=== PATIENT | male | born 1965 | race Caucasian/White ===

== ENCOUNTER 2017-07-19 20:05 | Observation (INO) | payer SELFPAY ==
[2017-07-19] MEDS ORDERED: NS 0.9% 1000 ML* 2,000 ML IV ONE (21:43)
[2017-07-19 22:11] LABS: Troponin I 0.01 ng/mL (<0.04)
[2017-07-19 22:12] LABS: ALT 42 U/L (7-52); AST 80 U/L (13-39); Albumin 2.6 g/dL (3.2-5.2); Alkaline Phosphatase 133 U/L (34-104); BUN/Creatinine Ratio 16.9 (8-20); Blood Urea Nitrogen 12 mg/dL (6-24); Chloride 105 mmol/L (101-111); EGFR African American 149.8 (>60); EGFR Non-African American 116.5 (>60); Globulin 2.4 g/dL (2-4); Glucose 66 mg/dL (70-100); Magnesium 1.6 mg/dL (1.9-2.7); Sodium 136 mmol/L (133-145)
[2017-07-19 22:13] LABS: Acetaminophen < 15 mcg/mL; Alcohol < 10 mg/dL (<10); Salicylate < 2.50 mg/dL (<30)
[2017-07-19 22:15] LABS: Anion Gap 18 mmol/L (2-11); CO2 Carbon Dioxide 13 mmol/L (22-32); Potassium 2.7 mmol/L (3.5-5.0)
[2017-07-19 22:44] LABS: Hematocrit 31 % (42-52); Hemoglobin 10.4 g/dl (14.0-18.0); Mean Corpuscular HGB Conc 33 g/dl (31-36); Mean Corpuscular Hemoglobin 36 pg (27-31); Mean Corpuscular Volume 107 fL (80-94); Mean Platelet Volume 9 um3 (7.4-10.4); Red Blood Count 2.91 10^6/ul (4.0-5.4); Red Cell Distribution Width 15 % (10.5-15); White Blood Count 5.5 10^3/ul (3.5-10.8)
[2017-07-19] MEDS ORDERED: Dextrose 50% Syringe 50 ML* 25 GM/50 ML SYRINGE IV PUSH ONE (22:46)
[2017-07-19] MEDS ORDERED: Magnesium Sulfate 1 GM IV* 1 GM/100 ML BAG IV ONE (22:47)
[2017-07-19 22:48] LABS: Comments Flag Yes
[2017-07-19 22:49] LABS: Add Diff/Slide Review? Slide Review Added
[2017-07-19] MEDS ORDERED: Potassium Chlor TAB* 20 MEQ TAB.ER PO ONE (22:52)
[2017-07-19] MEDS: KCL 10 MEQ/50 ML IVPREMIX* 10 MEQ/50 ML BAG IV SCH (23:04)
[2017-07-19] MEDS ORDERED: Calcium Gluconate INJ* 1 GM in NS 0.9% 50 ML* 50 ML IVPB ONE (23:12)
[2017-07-19] MEDS ORDERED: Heparin DRIP 25,000 UNITS(*) 25,000 UNITS/500 ML BAG IVPB SCH (23:15)
[2017-07-19] MEDS ORDERED: Aspirin TAB* 325 MG PO ONE (23:18)
[2017-07-19] MEDS ORDERED: Heparin VIAL(*) 5000 UNITS/ML VIAL (FIVE THOUSAND) IV SCH (23:45)
[2017-07-20] MEDS: KCL 10 MEQ/50 ML IVPREMIX* 10 MEQ/50 ML BAG IV SCH
[2017-07-20] MEDS ORDERED: Aspirin SUPP* 300 MG ONE (00:22)
[2017-07-20] MEDS ORDERED: Aspirin SUPP* 300 MG PR ONE (00:45)
--- NOTE | 2017-07-20 03:12 | ED ---
Priti Basilio Abhishek, scribed for Ariel Fernandez MD on 07/19/17 at 2151 . Altered Mental Status - HPI Summary HPI Summary: LEVEL 5 CAVEAT This patient is a 51 year old M BIBA from [facility] with a chief complaint of altered mental state. Pt was unresponsive (LOC) until 2125. Nurse reports chest pain and Pt transferred from [facility] for r/o NSTEMI. PMHx includes Sz. Medical records show unsteady gait, frequent falls, and symptoms of alcohol withdrawals. Chest X-ray and head X-ray perform at [facility] negative. Troponin mildly elevated. Pt denies any chest pain and SOB currently. - History Of Current Complaint Chief Complaint: EDChestPainROMI Stated Complaint: RULE OUT NSTEMI Hx Obtained From: Medical Records, Other: - Nurse Hx From Patient Unobtainable Due To: Altered Mental Status - LOC and unresponsive until 2125 Onset/Duration: Suddenly - 1630 Aggravating Factor(s): Nothing Alleviating Factor(s): Nothing Related History: Seizure - Allergies/Home Medications Allergies/Adverse Reactions: Allergies Allergy/AdvReac Type Severity Reaction Status Date / Time Penicillins [PCN] Allergy GI Upset Verified 09/04/13 13:07 PMH/Surg Hx/FS Hx/Imm Hx Cardiovascular History: Reports: Hx Hypertension Infectious Disease History: No Infectious Disease History: Denies: Traveled Outside the [place] in Last 30 Days - Family History Known Family History: Negative: Cardiac Disease - Social History Alcohol Use: unk Substance Use Type: Reports: Other Substance Use Comment - Amount & Last Used: unk Smoking Status (MU): Unknown if Ever Smoked Review of Systems - ROS Summary Review of Systems Summary: LEVEL 5 CAVEAT Pt was unresponsive until 2125 Constitutional: Negative Eyes: Negative ENT: Negative Negative: Chest Pain Negative: Shortness Of Breath Gastrointestinal: Negative Genitourinary: Negative Musculoskeletal: Negative Positive: Other Skin: Negative Neurological: Other - unsteady gait Positive: Syncope - LOC until 2125 All Other Systems Reviewed And Are Negative: Yes Physical Exam - Summary Physical Exam Summary: Appearance: Well-appearing, Well-nourished Skin: Warm Eyes: Normal ENT: Normal, Pupils 3 mm bilaterally reactive and equal Neck: Supple, nontender Respiratory: Clear to auscultation, normal lung sounds Cardiovascular: 2+ Brisk radial pulses 2+ Posterior tibial pulses bilaterally, Normal heart Abdomen: Soft, nontender Bowel: Present Musculoskeletal: Normal, Strength/ROM Intact Neurological: Slightly lethargic but unable follow commands alert only to self Psychiatric: Normal, History of possible substance use according to outside reports Triage Information Reviewed: Yes Vital Signs On Initial Exam: Initial Vitals BP 105/85 07/19/17 20:14 Vital Signs Reviewed: Yes - [place] Coma Scale Coma Scale Total: 11 Diagnostics - Vital Signs Vital Signs Temp Pulse Resp BP Pulse Ox 07/19/17 21:30 63 17 100/73 100 07/19/17 21:20 62 15 80/60 97 07/19/17 21:17 63 15 81/60 96 07/19/17 21:16 63 15 81/59 96 07/19/17 21:00 62 16 95/62 98 07/19/17 20:49 62 16 104/80 99 07/19/17 20:30 62 15 100/66 96 07/19/17 20:16 97.5 F 64 17 107/76 100 07/19/17 20:15 64 15 100 07/19/17 20:14 105/85 - Laboratory Lab Results: Lab Results 07/19/17 07/19/17 07/19/17 Range/Units 21:31 21:31 21:31 WBC 5.5 (3.5-10.8) 10^3/ul RBC 2.91 L (4.0-5.4) 10^6/ul Hgb 10.4 L (14.0-18.0) g/dl Hct 31 L (42-52) % MCV 107 H (80-94) fL MCH 36 H (27-31) pg MCHC 33 (31-36) g/dl RDW 15 (10.5-15) % Plt Count 83 L (150-450) 10^3/ul MPV 9 (7.4-10.4) um3 Neut % (Auto) 67.5 (38-83) % Lymph % (Auto) 19.1 L (25-47) % [place] % (Auto) 8.7 (1-9) % Eos % (Auto) 3.9 (0-6) % Baso % (Auto) 0.8 (0-2) % Absolute Neuts (auto) 3.7 (1.5-7.7) 10^3/ul Absolute Lymphs (auto) 1.0 (1.0-4.8) 10^3/ul Absolute Monos (auto) 0.5 (0-0.8) 10^3/ul Absolute Eos (auto) 0.2 (0-0.6) 10^3/ul Absolute Basos (auto) 0 (0-0.2) 10^3/ul Absolute Nucleated RBC 0 10^3/ul Nucleated RBC % 0 INR (Anticoag Therapy) 0.93 (0.89-1.11) APTT 28.8 (26.0-36.3) seconds Sodium 136 (133-145) mmol/L Potassium 2.7 L* (3.5-5.0) mmol/L Chloride 105 (101-111) mmol/L Carbon Dioxide 13 L* (22-32) mmol/L Anion Gap 18 H (2-11) mmol/L BUN 12 (6-24) mg/dL Creatinine 0.71 (0.67-1.17) mg/dL Est GFR ( Amer) 149.8 (>60) Est GFR (Non-Af Amer) 116.5 (>60) BUN/Creatinine Ratio 16.9 (8-20) Glucose 66 L (70-100) mg/dL POC Glucose (mg/dL) (70-100) mg/dL Lactic Acid (0.5-2.0) mmol/L Calcium 7.0 L (8.6-10.3) mg/dL Magnesium 1.6 L (1.9-2.7) mg/dL Total Bilirubin 0.90 (0.2-1.0) mg/dL AST 80 H (13-39) U/L ALT 42 (7-52) U/L Alkaline Phosphatase 133 H (34-104) U/L Troponin I 0.01 (<0.04) ng/mL Total Protein 5.0 L (6.4-8.9) g/dL Albumin 2.6 L (3.2-5.2) g/dL Globulin 2.4 (2-4) g/dL Albumin/Globulin Ratio 1.1 (1-3) Salicylates < 2.50 (<30) mg/dL Acetaminophen < 15 mcg/mL Serum Alcohol < 10 (<10) mg/dL 07/19/17 07/19/17 Range/Units 21:31 21:35 WBC (3.5-10.8) 10^3/ul RBC (4.0-5.4) 10^6/ul Hgb (14.0-18.0) g/dl Hct (42-52) % MCV (80-94) fL MCH (27-31) pg MCHC (31-36) g/dl RDW (10.5-15) % Plt Count (150-450) 10^3/ul MPV (7.4-10.4) um3 Neut % (Auto) (38-83) % Lymph % (Auto) (25-47) % [place] % (Auto) (1-9) % Eos % (Auto) (0-6) % Baso % (Auto) (0-2) % Absolute Neuts (auto) (1.5-7.7) 10^3/ul Absolute Lymphs (auto) (1.0-4.8) 10^3/ul Absolute Monos (auto) (0-0.8) 10^3/ul Absolute Eos (auto) (0-0.6) 10^3/ul Absolute Basos (auto) (0-0.2) 10^3/ul Absolute Nucleated RBC 10^3/ul Nucleated RBC % INR (Anticoag Therapy) (0.89-1.11) APTT (26.0-36.3) seconds Sodium (133-145) mmol/L Potassium (3.5-5.0) mmol/L Chloride (101-111) mmol/L Carbon Dioxide (22-32) mmol/L Anion Gap (2-11) mmol/L BUN (6-24) mg/dL Creatinine (0.67-1.17) mg/dL Est GFR ( Amer) (>60) Est GFR (Non-Af Amer) (>60) BUN/Creatinine Ratio (8-20) Glucose (70-100) mg/dL POC Glucose (mg/dL) 83 (70-100) mg/dL Lactic Acid 0.5 (0.5-2.0) mmol/L Calcium (8.6-10.3) mg/dL Magnesium (1.9-2.7) mg/dL Total Bilirubin (0.2-1.0) mg/dL AST (13-39) U/L ALT (7-52) U/L Alkaline Phosphatase (34-104) U/L Troponin I (<0.04) ng/mL Total Protein (6.4-8.9) g/dL Albumin (3.2-5.2) g/dL Globulin (2-4) g/dL Albumin/Globulin Ratio (1-3) Salicylates (<30) mg/dL Acetaminophen mcg/mL Serum Alcohol (<10) mg/dL Result Diagrams: 07/19/17 21:31 07/19/17 21:31 Lab Statement: Any lab studies that have been ordered have been reviewed, and results considered in the medical decision making process. - Radiology Chest X-ray Radiology Interpretation Completed By: Radiologist - CXR reveals No evidence for acute intrathoracic disease. ED physician has reviewed this radiology report and agrees. - CT Brain CT CT Interpretation Completed By: Radiologist - Brain CT reveals PATCHY LUCENCY IN THE WHITE MATTER JUST LATERAL TO THE CAUDATE HEAD SUGGESTING A LACUNAR INFARCTION OF INDETERMINATE AGE. MRI IMAGING MAY HELP IN FURTHER EVALUATING FOR ACUTE OR CHRONIC ISCHEMIC CHANGES. ED physician has reviewed this radiology report and agrees. Altered Mental Statu Course/Dx - Course Course Of Treatment: started on heparin for possible nstemi. troponin neg here on repeat, given rectal asa, improving mental status. Already had neg cxr and head ct. ekg shows new twi in lateral leads, admitted for further treatment and observation for etoh withdrawal. - Diagnoses Discharge Diagnoses: Alcohol withdrawal, EKG abnormalities Discharge - Discharge Plan Condition: Stable Disposition: ADMITTED TO [facility] The documentation as recorded by the Priti sotomayor Abhishek accurately reflects the service I personally performed and the decisions made by , Ariel Fernandez MD.
[2017-07-20] MEDS ORDERED: Ondansetron INJ* 2 MG/ML VIAL IV PRN (03:53)
[2017-07-20] MEDS ORDERED: Acetaminophen TAB* 325 MG PO PRN (03:53)
[2017-07-20] MEDS ORDERED: Thiamine IV* 100 MG/ML 2 ML VIAL IM ONE (04:28)
[2017-07-20] MEDS ORDERED: KCL 20 MEQ/100 ML IVPREMIX* 20 MEQ/100 ML BAG IV ONE (04:31)
--- NOTE | 2017-07-20 04:33 | HP ---
H&P (Free Text) History and Physical: PCP: unknown Date/Time: 07/20/2017 0345 CC: frequent falls HPI: Mr Simmons is a 51YO male HX alcoholism who drove himself to [place] ED where he complained of frequent falls and was noted to be easily confused with active hallucinations. From there his work up revealed multiple electrolyte abnormalities consistent with alcoholism in addition to a trivially elevated troponin of 0.023 associated with an ECG showing T-wave inversions V1-4 and T- wave flattening in V5-6 & I prompting a request to transfer to [facility] for cardiac rule-out. Per [place] documentation, he denied chest pain, SOB, & N/V and was in no apparent distress. Drug screen was negative, including alcohol. Prior to transport he received 50mg chlordiazepoxide PO, 2mg lorazepam IV, & 324mg aspirin. Repeat troponin at [facility] was 0.01 with an essentially unchanged ECG. Upon my evaluation, Mr Simmons remains quite sedated. He withdraws purposefully to noxious stimuli and briefly opens his eyes, but does not answer questions and drifts quickly back to sleep. This information was therefore obtained from ED staff and the available medical record. He was initially started on a heparin GTT, but I have discontinued this based on the available information and work up. PMedHx HTN alcoholism Medications Nursing to reconcile. Allergies Penicillins [PCN] Allergy (Verified 09/04/13 13:07) GI Upset PSurgHx unobtainable SocHx: unobtainable FamHx: unobtainable ROS: unobtainable vitals: Vital Signs Temp 36.3 C 07/20/17 01:34 Pulse 62 07/20/17 03:30 Resp 14 07/20/17 03:30 BP 86/63 07/20/17 03:30 Pulse Ox 100 07/20/17 03:30 Intake & Output 07/19/17 07/19/17 07/20/17 11:59 23:59 11:59 Intake Total 221 50 Balance 221 50 Weight 74.843 kg Intake: IV Fluids 2210 50 Constitutional: NAD, normally developed, well-nourished white male HEENM: atraumatic; sclera/conjunctiva: non-icteric/clear; hearing: unable to assess; oropharynx: clear, mucosa tacky, intact gag reflex Neck: soft tissue: non-tender; thyroid: normal Pulmonary: clear to auscultation bilaterally, good aeration, no accessory muscle use CV: RR/RR, normal S1S2, no carotid bruit, no jugular venous distention, 2+ B DP/ PT, no edema Abdominal: soft, non-distended, non-tender, no rebound/guarding/rigidity, normoactive bowel sounds, no hepatosplenomegaly or masses, no costovertebral angle tenderness Musculoskeletal: general: grossly intact; gait: currently unable to ambulate Integumental: normal appearance and texture of exposed skin Psychiatric orientation: somnolent, GCS 8 affect: somnolent mood: acquiescent eye contact: poor, nearly absent content: incomprehensible, minimal effort memory: unable to assess responses: minimal, withdraws purposefully to pain insight: poor Testing: Lab Results 07/19/17 07/19/17 07/19/17 Range/Units 21:31 21:31 21:31 WBC 5.5 (3.5-10.8) 10^3/ul RBC 2.91 L (4.0-5.4) 10^6/ul Hgb 10.4 L (14.0-18.0) g/dl Hct 31 L (42-52) % MCV 107 H (80-94) fL MCH 36 H (27-31) pg MCHC 33 (31-36) g/dl RDW 15 (10.5-15) % Plt Count 83 L (150-450) 10^3/ul MPV 9 (7.4-10.4) um3 Neut % (Auto) 67.5 (38-83) % Lymph % (Auto) 19.1 L (25-47) % [place] % (Auto) 8.7 (1-9) % Eos % (Auto) 3.9 (0-6) % Baso % (Auto) 0.8 (0-2) % Absolute Neuts (auto) 3.7 (1.5-7.7) 10^3/ul Absolute Lymphs (auto) 1.0 (1.0-4.8) 10^3/ul Absolute Monos (auto) 0.5 (0-0.8) 10^3/ul Absolute Eos (auto) 0.2 (0-0.6) 10^3/ul Absolute Basos (auto) 0 (0-0.2) 10^3/ul Absolute Nucleated RBC 0 10^3/ul Nucleated RBC % 0 INR (Anticoag Therapy) 0.93 (0.89-1.11) APTT 28.8 (26.0-36.3) seconds Sodium 136 (133-145) mmol/L Potassium 2.7 L* (3.5-5.0) mmol/L Chloride 105 (101-111) mmol/L Carbon Dioxide 13 L* (22-32) mmol/L Anion Gap 18 H (2-11) mmol/L BUN 12 (6-24) mg/dL Creatinine 0.71 (0.67-1.17) mg/dL Est GFR ( Amer) 149.8 (>60) Est GFR (Non-Af Amer) 116.5 (>60) BUN/Creatinine Ratio 16.9 (8-20) Glucose 66 L (70-100) mg/dL POC Glucose (mg/dL) (70-100) mg/dL Lactic Acid (0.5-2.0) mmol/L Calcium 7.0 L (8.6-10.3) mg/dL Magnesium 1.6 L (1.9-2.7) mg/dL Total Bilirubin 0.90 (0.2-1.0) mg/dL AST 80 H (13-39) U/L ALT 42 (7-52) U/L Alkaline Phosphatase 133 H (34-104) U/L Troponin I 0.01 (<0.04) ng/mL Total Protein 5.0 L (6.4-8.9) g/dL Albumin 2.6 L (3.2-5.2) g/dL Globulin 2.4 (2-4) g/dL Albumin/Globulin Ratio 1.1 (1-3) Salicylates < 2.50 (<30) mg/dL Acetaminophen < 15 mcg/mL Serum Alcohol < 10 (<10) mg/dL 07/19/17 07/19/17 07/20/17 Range/Units 21:31 21:35 03:32 WBC (3.5-10.8) 10^3/ul RBC (4.0-5.4) 10^6/ul Hgb (14.0-18.0) g/dl Hct (42-52) % MCV (80-94) fL MCH (27-31) pg MCHC (31-36) g/dl RDW (10.5-15) % Plt Count (150-450) 10^3/ul MPV (7.4-10.4) um3 Neut % (Auto) (38-83) % Lymph % (Auto) (25-47) % [place] % (Auto) (1-9) % Eos % (Auto) (0-6) % Baso % (Auto) (0-2) % Absolute Neuts (auto) (1.5-7.7) 10^3/ul Absolute Lymphs (auto) (1.0-4.8) 10^3/ul Absolute Monos (auto) (0-0.8) 10^3/ul Absolute Eos (auto) (0-0.6) 10^3/ul Absolute Basos (auto) (0-0.2) 10^3/ul Absolute Nucleated RBC 10^3/ul Nucleated RBC % INR (Anticoag Therapy) (0.89-1.11) APTT (26.0-36.3) seconds Sodium (133-145) mmol/L Potassium (3.5-5.0) mmol/L Chloride (101-111) mmol/L Carbon Dioxide (22-32) mmol/L Anion Gap (2-11) mmol/L BUN (6-24) mg/dL Creatinine (0.67-1.17) mg/dL Est GFR ( Amer) (>60) Est GFR (Non-Af Amer) (>60) BUN/Creatinine Ratio (8-20) Glucose (70-100) mg/dL POC Glucose (mg/dL) 83 115 H (70-100) mg/dL Lactic Acid 0.5 (0.5-2.0) mmol/L Calcium (8.6-10.3) mg/dL Magnesium (1.9-2.7) mg/dL Total Bilirubin (0.2-1.0) mg/dL AST (13-39) U/L ALT (7-52) U/L Alkaline Phosphatase (34-104) U/L Troponin I (<0.04) ng/mL Total Protein (6.4-8.9) g/dL Albumin (3.2-5.2) g/dL Globulin (2-4) g/dL Albumin/Globulin Ratio (1-3) Salicylates (<30) mg/dL Acetaminophen mcg/mL Serum Alcohol (<10) mg/dL ECG, personally reviewed: NSR rate 60s, T-wave inversions V1-4, T-wave flattening V5-6 & I CXR, not currently available for review: reported as no acute findings CT brain WO, not currently available for review: FINDINGS: No acute intracranial hemorrhage seen. Mild chronic ischemic changes similar to before. No new and no acute intracranial findings. Again seen is right maxillary sinus disease. CONCLUSION: Stable exam, no acute findings. Impression: 51M presenting to [place] ED in active alcohol withdrawal, transferred for concern of NSTEMI which has been ruled out DIAGNOSIS & PLAN Primary alcohol withdrawal : [facility] protocol elevated troponin, abnormal ECG : NSTEMI ruled out : recheck ECG in AM : check ECHO to evaluate for alcoholic cardiomyopathy : no further acute evaluation recommended : Shruthi Tejada MD consulted by [place], not consulted here as no indication present electrolyte imbalance : replace & recheck Secondary HTN : review meds once reconciled Admission Rational: inpatient for active alcohol withdrawal not anticipated to be adequately resolved within 48h to allow for discharge DVTp: SCDs Code Status: full HCP: unknown
[2017-07-20] MEDS ORDERED: LORazepam INJ* 2 MG/ML 1 ML VIAL IV PUSH SCH (05:00)
[2017-07-20] MEDS: NS 0.9% 1000 ML* 1,000 ML IV SCH ×2 (05:51→22:54)
[2017-07-20] MEDS: Omeprazole CAP* 20 MG PO SCH (05:58)
[2017-07-20] MEDS: LORazepam TAB(*) 1 MG PO SCH ×2 (06:37→12:10)
[2017-07-20] MEDS ORDERED: Magnesium Sulfate 2 GM IV* 2 GM/50 ML BAG IVPB ONE (08:41)
[2017-07-20 08:52] LABS: Hematocrit 31 % (42-52); Hemoglobin 10.5 g/dl (14.0-18.0); Mean Corpuscular HGB Conc 34 g/dl (31-36); Mean Corpuscular Hemoglobin 36 pg (27-31); Mean Platelet Volume 9 um3 (7.4-10.4); Red Blood Count 2.91 10^6/ul (4.0-5.4); Red Cell Distribution Width 15 % (10.5-15); White Blood Count 5.9 10^3/ul (3.5-10.8)
[2017-07-20 08:54] LABS: Comments Flag Yes; Mean Corpuscular Volume 106 fL (80-94)
[2017-07-20 09:10] LABS: Troponin I 0.01 ng/mL (<0.04)
[2017-07-20 09:13] LABS: BUN/Creatinine Ratio 12.5 (8-20); Calcium 7.5 mg/dL (8.6-10.3); EGFR African American 168.9 (>60); EGFR Non-African American 131.3 (>60); Magnesium 1.7 mg/dL (1.9-2.7); Potassium 3.2 mmol/L (3.5-5.0)
[2017-07-20] MEDS: Folic Acid TAB* 1 MG PO SCH (09:17)
[2017-07-20] MEDS: Docusate CAP* 100 MG PO SCH ×2 (09:17→21:09)
[2017-07-20] MEDS: Multivitamins/Minerals TAB PO SCH (09:17)
[2017-07-20] MEDS: Thiamine TAB* 100 MG TAB PO SCH (09:17)
--- NOTE | 2017-07-20 10:40 | ECHO ---
Patient: SISSY AGARWAL [facility] Rec#: [id number] : 1965 Date: 07/20/2017 Age: 51y Height: 172.72 cm / 68.0 in Weight: 74.84 kg / 164.9 lbs Sex: M BSA: 1.88 Room#: 436 Admit Date#: 07/20/2017 Type: Inpatient Referring: Bashir López MD Reading: Patsy Ferraro MD Plant Associate[facility] Transthoracic Echocardiogram Indication: Chest Pain BP: 86/62 HR: 57 Rhythm: Bradycardia Findings History: HTN, seizures, alcoholism. Technical Comments: The study quality is fair. The study is technically limited due to patient body habitus. Completed at 1000. Left Ventricle: The left ventricular chamber size is normal. Mild concentric left ventricular hypertrophy is observed. Global left ventricular wall motion and contractility are within normal limits. The left ventricle appears hyperdynamic. The estimated ejection fraction is 60-65%. Normal left ventricular diastolic filling is observed. Left Atrium: The left atrium is mild to moderately dilated. Right Ventricle: Moderator Band present. The right ventricular cavity size is normal. The right ventricular global systolic function is normal. Right Atrium: The right atrium is mildly dilated. Aortic Valve: The aortic valve is trileaflet. The aortic valve leaflets are mildly thickened. There is mild to moderate aortic regurgitation. Mitral Valve: The mitral valve leaflets are mildly thickened. There is trace to mild mitral regurgitation. There is no evidence of mitral stenosis. Tricuspid Valve: The tricuspid valve leaflets are normal. There is trace to mild tricuspid regurgitation. The right ventricular systolic pressure is estimated at 13 mmHg. There is evidence that pulmonary hypertension may be underestimated. There is no tricuspid stenosis. Pulmonic Valve: The pulmonic valve appears normal. There is a trace pulmonic regurgitation. There is no pulmonic stenosis. Pericardium: There is no significant pericardial effusion. A pericardial fat pad is visualized. Aorta: There is no dilatation of the ascending aorta. There is no dilatation of the aortic arch. There is mild dilatation of the aortic root. Pulmonary Artery: The main pulmonary artery appears normal. Venous: The inferior vena cava appears normal in size. There is a greater than 50% respiratory change in the inferior vena cava dimension. Conclusions Mild concentric left ventricular hypertrophy is observed. The left ventricle appears hyperdynamic. The estimated ejection fraction is 60-65%. The right ventricular global systolic function is normal. There is mild to moderate aortic insufficiency, moderate by P 1/2, mild to moderate by AI area on short axis, no clear reversal of flow in the descending aorta. There is trace to mild mitral regurgitation. There is trace to mild tricuspid regurgitation. There is mild dilatation of the aortic root. There is no dilatation of the aortic arch. No prior echo available to compare. Measurements Name Value Normal Range RVIDd (AP) 2D 3 cm (0.9 - 2.6) RVDdMajor (2D) 3.7 cm (2.2 - 4.4) RAd ISD 4CH 5.3 cm (3.4 - 4.9) RA (A4C)W 4.7 cm (2.9 - 4.6) IVSd (2D) 1.1 cm (0.6 - 1) LVPWd (2D) 1.1 cm (0.6 - 1) LVIDd (2D) 4.4 cm (3.6 - 5.4) LVIDs (2D) 2.8 cm - LV FS (2D) 35 % (25 - 45) Aortic Annulus 2 cm (1.4 - 2.6) Ao root diameter (2D) 3.6 cm (2.1 - 3.5) Ascending Ao 3.2 cm (2.1 - 3.4) Aortic arch 2.8 cm (1.8 - 3.4) LA dimension (AP) 2D 3.4 cm (2.3 - 3.8) LAd ISD 4CH 5.7 cm (2.9 - 5.3) LA ISD 4CH W 4.8 cm (2.5 - 4.5) Name Value Normal Range LA ESV SP 4CH (A/L) 72 ml - LA ESV SP 2CH (A/L) 79 ml - LA ESV BP (A/L) 77 ml - LA ESV BP (A/L) index 40.48 ml/m2 - LA ESV SP 4CH (MOD) 68 ml - LA ESV SP 2CH (MOD) 73 ml - Name Value Normal Range MV E-wave Vmax 0.77 m/sec - MV deceleration time 233.4 msec - MV A-wave Vmax 0.49 m/sec - MV E:A ratio 1.55 ratio - LV septal e' Vmax 0.09 m/sec - LV lateral e' Vmax 0.11 m/sec - LV E:e' septal ratio 8.56 ratio - LV E:e' lateral ratio 7 ratio - Name Value Normal Range AV Vmax 1.48 m/sec - AV VTI 33.87 cm - AV peak gradient 8.78 mmHg - AV mean gradient 5.06 mmHg - LVOT Vmax 1.34 m/sec - LVOT VTI 32.25 cm - LVOT peak gradient 7.28 mmHg - LVOT mean gradient 4.14 mmHg - AR PHT 357.6 msec - AR peak gradient 21.6 mmHg - JEIMY Vmax 0.78 m/sec - Name Value Normal Range TR Vmax 1.6 m/sec - TR peak gradient 10 mmHg - RAP 3 mmHg - RVSP 13 mmHg - IVC diameter 2 cm - Name Value Normal Range PV Vmax 0.7 m/sec - PV peak gradient 1.94 mmHg -
[2017-07-20] MEDS: Potassium Chlor TAB* 20 MEQ TAB.ER PO SCH ×2 (10:55→12:09)
[2017-07-20 12:17] LABS: Urine Bacteria Absent (Absent); Urine Bilirubin Negative (Negative); Urine Glucose Negative (Negative); Urine Nitrite Negative (Negative)
[2017-07-20 12:31] LABS: Benzodiazepine Urine Screen Presumptive Positive (None Detect)
--- NOTE | 2017-07-20 13:50 | PN ---
Hospitalist Progress Note Pt seen and examined. 51 yo alcoholic (1/2 bottle vodka nightly until 3 weeks ago admitted to [facility] with seizures and claims abstinence since then. Current 1/2 pack smoker. EKG with v1-v4 and AVL TWI, no prior to compare too. Multiple recent falls in recent days. Lytes being repleted. Nuclear stress test planned. [facility] protocol ordred but not scoring. ECHO with moderate Aortic Insufficiency, EF 60-65%. PCP Shalini Garcia. Jarod Nieto MD.
[2017-07-20] MEDS ORDERED: Regadenoson* 0.4 MG/5 ML SYRINGE ONE (14:31)
[2017-07-20] MEDS ORDERED: NS 0.9% 500 ML* 500 ML IV ONE (19:25)
[2017-07-21] MEDS: Omeprazole CAP* 20 MG PO SCH (05:39)
[2017-07-21 07:20] LABS: BUN/Creatinine Ratio 6.9 (8-20); Calcium 7.8 mg/dL (8.6-10.3); EGFR African American 189.2 (>60); EGFR Non-African American 147.1 (>60); Magnesium 1.7 mg/dL (1.9-2.7); Potassium 3.4 mmol/L (3.5-5.0)
[2017-07-21 08:03] VITALS: BP 130/78
--- NOTE | 2017-07-21 08:36 | RAD ---
HISTORY: Abnormal EKG COMPARISONS: None TECHNIQUE: A 2 day stress/rest myocardial perfusion study was performed, with pharmacologic stress. The stress portion was monitored by Dr. Cm. Gated SPECT imaging was performed, with CT-based attenuation correction DOSE: Stress: Technetium 99m tetrofosmin, 25.4 millicuries, injected at 1:15 PM on July 20, 2017 Rest: Technetium 99m tetrofosmin, 25.6 millicuries, injected at 6:30 AM on July 21, 2017 Pharmacologic agent: Lexiscan FINDINGS: CARDIAC MONITORING: Abnormal baseline EKG, without definitive changes with stress EF: 71 % with stress, 60% with rest TID: 0.9 MOTION: Normal motion, with normal wall thickening. PERFUSION: On the nonattenuation corrected images, there is a small septal defect. This appears fixed. The reversibility on the polar maps is felt to represent missed registration artifact. The attenuation corrected defect of the septum appears to be artifactual. OTHER: There are small bilateral pleural effusions IMPRESSION: QUESTIONABLE SMALL FIXED DEFECT OF THE SEPTUM. NORMAL EJECTION FRACTION. ASSESSMENT: LOW RISK. Based on imaging criteria from ACC/AHA 2002. Guideline Update for the Management of Patient's with Chronic Stable Angina, table 23. Noninvasive Risk Stratification. CPT II Codes: 9044A4Z
[2017-07-21] MEDS: Folic Acid TAB* 1 MG PO SCH (08:58)
[2017-07-21] MEDS: Docusate CAP* 100 MG PO SCH (08:58)
[2017-07-21] MEDS: Thiamine TAB* 100 MG TAB PO SCH (08:58)
[2017-07-21] MEDS: Multivitamins/Minerals TAB PO SCH (08:58)
[2017-07-21] MEDS ORDERED: Potassium Chlor TAB* 20 MEQ TAB.ER PO SCH (09:00)
--- NOTE | 2017-07-22 01:01 | DS ---
DISCHARGE SUMMARY: DATE OF ADMISSION: 07/20/17 DATE OF DISCHARGE: 07/21/17 CHIEF COMPLAINT: Frequent falls, visual hallucinations; sent from [facility] given EKG changes. PAST MEDICAL HISTORY: Hypertension, alcoholism with recent seizures 3 weeks ago. HISTORY OF PRESENT ILLNESS AND HOSPITAL COURSE: Mr. Rolf Simmons is a 51-year- old male, alcoholic, drinks between 1-/2 and 1 bottle of vodka a night until he says 3 weeks ago when he had hospitalization in [place] with seizures. He presented to the [facility] with complaints of frequent falls and episodes of visual hallucinations. The most recent episodes happened few days prior to admission: while living with his mother, he got up in the middle of night and imaging he was in the room with his 2 brothers(not actually present ). While trying to navigate a narrow space, fell down in the pitch dark. Another hallucination was when he imagined being with his sister(not present). The patient attested he recently fell backwards while waiting at a store, a few days prior to admission. His EKG initially at [facility] showed some T-wave inversions in V1 to V4. His initial troponins were 0.01. He was transferred to [facility] for further cardiac evaluation. Prior to transfer, he got a negative alcohol level on drug screen and he was given 50 of Librium p.o. and 2 mg of Ativan IV, 324 mg of aspirin. It is unclear whether or not he had been evidencing any symptoms of alcohol withdrawal at that time. Later, the patient' s brother would attest that he heard from their sister that he may have been drinking Monday 07/16 or Tuesday 07/17 few days prior to admission. The patient later strongly denied this but was not able to provide many details about what he was doing instead. The patient was quite sedated after receiving those benzos prior to transfer. He denied any chest pain on hospital day #1. Given his new EKG findings and along with his frequent falls and the patient being a poor historian, he received a nuclear stress test, which was negative. He got an echocardiogram on admission, which showed mild to moderate aortic insufficiency. Ejection fraction of 60% to 65%. The aortic insufficiency was moderate by P one half, mild to moderate by AI area on short axis. No clear reversal of flow into the descending aorta. There was trace amount mitral regurgitation, trace amount tricuspid regurgitation. Mild dilation of the aortic root. No dilatation of the aortic arch. LV appeared hyperdynamic. The patient's blood pressures were soft, improved with some IV fluids. The rest of hospital day #1, he was intermittently sedated after Ativan 2mg (taper ordered on admission). On hospital day #2, he was feeling tired having not slept well given disruptions in the hospital, but insisting he would leave by noon. He denies interest in going to any alcohol treatment center or AA stating that he had quit cold turkey in the past. Of note, his brother attested that this was 10 to 15 years ago prior to going through his divorce. 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 The patient was strongly encouraged to follow with AA or other treatment facility programs. The patient will be discharged on folic acid, thiamine supplementation, and multivitamin. He follows up with Dr. Sandra Garcia (also a neighbor) and was encouraged to follow up with a new supervisor soakers given the [id number] aortic insufficiency and history of falls. A conference was later held in ED conference room shortly after discharge with the patient's daughter and brother (in presence of patient) about our strong recommendations for alcohol treatment. [facility] and [facility] were mentioned as resources. DISCHARGE MEDICATIONS: Include: 1. Folic acid 1 mg p.o. daily. 2. Thiamine 100 mg p.o. daily. 3. Multivitamin 1 tab p.o. daily. ACTIVITY: No restrictions. FOLLOWUP: With Dr. Sandra Garcia within 5 days and please establish care with a new supervisor soakers. The patient was also strongly encouraged to undergo alcohol cessation treatment, either AA, private counseling or inpatient vs outpatient rehab. TIME SPENT: On discharge 35 minutes. [id number]/[facility] #: [id number] LIZZY
== END 2017-07-21 11:02 | disposition home or self-care (01) ==
LOC: ED 20:05 → MEDTELE 07-20 03:50
PROVIDERS: ADMIT Hospitalist; ATTEND Internal Medicine
DX: F10.232 Alcohol dependence with withdrawal with perceptual disturbance (principal); I10 Essential (primary) hypertension; G40.89 Other seizures; R74.8 Abnormal levels of other serum enzymes; R94.31 Abnormal electrocardiogram [ECG] [EKG]; I35.1 Nonrheumatic aortic (valve) insufficiency; R07.9 Chest pain, unspecified; I51.7 Cardiomegaly; F17.210 Nicotine dependence, cigarettes, uncomplicated; Z88.0 Allergy status to penicillin; Z79.899 Other long term (current) drug therapy
CPT/HCPCS: 36415; 78452; 80048; 80053; 80307; 80320; 80329; 81003; 81015; 83605; 83735; 84484; 85025; 85610; 85730; 93005; 93017; 93306; 96365; 96366; 96367; 96372; 99285; 99406; A9270-GY; A9502; G0378; G0480; J0610; J1644; J2785; J3411; J3475; J3480